=== PATIENT | male | born 1985 | race Caucasian/White ===

== ENCOUNTER 2025-07-14 13:44 | Emergency (ER) | payer OTHER, SELFPAY ==
[2025-07-14 13:45] VITALS: BMI 40.0
[2025-07-14 13:47] VITALS: BP 162/105
[2025-07-14 14:51] VITALS: BP 142/74
[2025-07-14 15:11] LABS: Hematocrit 44.3 % (39.0-52.0); Hemoglobin 15.3 g/dL (13.0-18.0); Mean Corp Hgb Conc. 34.5 g/dL (33.0-37.0); Mean Corpuscular Volume 81.6 fL (80.0-94.0); Nucleated Red Blood Cells % 0 % (-); Platelet Count 264 10^3/uL (130-400); Red Cell Dist. Width 13.8 % (11.5-14.5)
[2025-07-14 15:33] LABS: ALT (SGPT) 52 U/L (0-50); AST (SGOT) 39 U/L (17-59); Albumin 4.8 g/dl (3.5-5.0); Alkaline Phosphatase 83 U/L (38-126); Blood Urea Nitrogen 11 mg/dl (9-20); Calcium 9.9 mg/dl (8.4-10.2); Carbon Dioxide 18 mmol/L (22-30); Chloride 101 mmol/L (98-107); Estimated Creatinine Clearance > 125 ml/min; Glucose 272 mg/dl (70-99); Lipase 94 U/L (23-300); Potassium 4.3 mmol/L (3.5-5.1); Sodium 135 mmol/L (135-145); Total Protein 8.0 g/dl (6.3-8.2); eGFR > 60.00
[2025-07-14 16:04] VITALS: BP 159/76
--- NOTE | 2025-07-14 16:06 | EDRN ---
Dr. Jiang in room w/ pt.
--- NOTE | 2025-07-14 16:09 | ED.GENMED ---
History of Present Illness
General
Chief Complaint: Abdominal Pain
Source: patient
Exam Limitations: none
Time Seen by Provider: 07/14/25 14:33
Nursing documentation reviewed up to this point in time: agreed with
History of Present Illness
History of Present Illness:
39-year-old male with no reported chronic medical issues presents to the emergency department for evaluation of abdominal pain. Patient reports onset of symptoms rather suddenly this morning while at rest and they have been constant although
intensity waxing waning since onset. He reports pain in the right flank that radiates towards the right upper quadrant of the abdomen. Associated with nausea and multiple episodes of nonbloody vomiting. Denies diarrhea or constipation. Denies
any dysuria, hematuria, change in urinary frequency. Denies any fever or chills. He denies having had similar symptoms in the past. Denies any prior abdominal surgeries.
Review of Systems
Review of Systems
All Other Systems: ROS reviewed and negative except as documented in HPI and ROS
Constitutional: Denies fever
Respiratory: Denies trouble breathing
Cardiac: Denies chest pain
ABD/GI: Reports abdominal pain, nausea and vomiting; Denies diarrhea or constipated
: Reports flank pain; Denies dysuria or frequency
Musculoskeletal: Denies neck pain
Neurological: Denies dizzy or headache
Phy Exam
Physical Exam
Physical Exam:
General: Awake, alert, oriented x3; no acute distress
Head: Normocephalic, atraumatic
Eyes: Conjunctiva normal, sclera anicteric
Throat: Airway intact, handling secretions
Neck: Trachea midline, supple without meningismus
Lungs: Clear to auscultation bilaterally, no wheezing, rales, rhonchi
Heart: Regular rate and rhythm, no murmurs, gallops, or rubs
Abd: Obese but soft, non distended, mildly tender in the right upper quadrant
Back: No CVA tenderness
Neuro: Grossly intact
Skin: no rash in area of concern
Extremities: Warm and well-perfused
Scores
Heart Failure Risk
Heart Failure Risk Score: Not Applicable
Heart Score for Chest Pain Patients
STEMI patient?: Not applicable
Withdrawal Assessment of Alcohol
Withdrawal Assessment Completed?: Not applicable
Course
Orders/Labs/Results
Orders:
Orders
07/14/25 14:44
US Abdomen Complete/Upper Urgent
Comment:
Reason For Exam: RUQ/flank pain, N/V
07/14/25 14:48
Complete Blood Count/With Diff Urgent
Comprehensive Metabolic Panel Urgent
Lipase Urgent
07/14/25 14:49
Urinalysis Reflex To Culture Urgent
Date Specimen was Collected: 07/14/25
Time Specimen was Collected: 14:48
Urine Microscopic Reflex Cult Urgent
07/14/25 16:13
0.9% Sodium Chloride 1000 ml [Nss] 1,000 ml IV BOLUS
07/14/25 17:36
Hemoglobin A1c [Glycohemoglobin (HgbA1c)] Urgent
Abnormal Lab Results
07/14/25 07/14/25
14:48 14:49
WBC 15.1 H 10^3/uL
(4.8-10.8)
Abs Immat Gran (auto) 0.3 H 10^3/uL
(0-0.05)
Absolute Neuts (auto) 12.0 H 10^3/uL
(1.4-6.5)
Absolute Monos (auto) 1.0 H 10^3/uL
(0.1-0.6)
Immature Gran % 1.7 H %
(0-0.5)
Neutrophils % 79.3 H %
(42.2-75.2)
Lymphocytes % 11.5 L %
(20.5-51.1)
Carbon Dioxide 18 L mmol/L
(22-30)
Glucose 272 H mg/dl
(70-99)
ALT 52 H U/L
(0-50)
Urine Ketones 3+ A
(Negative)
Ur Occult Blood Reflex 2+ A
(Negative)
Urine RBC 11-15 A /HPF
(0-2)
Urine Bacteria (Reflex) Few A
(Negative)
Urine Glucose 4+ A
(Negative)
Urine Albumin (Reflex) 2+ A
(Neg - Trace)
07/14/25 14:48
07/14/25 14:48
Vital Signs
Initial and Last Documented VS:
Initial Vital Signs
Temp Pulse Resp BP Pulse Ox
37.0 C 68 18 162/105 98
07/14/25 13:47 07/14/25 13:47 07/14/25 13:47 07/14/25 13:47 07/14/25 13:47
Last Documented Vital Signs
Temp Pulse Resp BP Pulse Ox
37.0 C 98 16 170/94 99
07/14/25 13:47 07/14/25 17:16 07/14/25 17:16 07/14/25 17:16 07/14/25 17:16
MDM/Problems Addressed
Differential Diagnosis Includes:
Cholelithiasis, cholecystitis, choledocholithiasis, pancreatitis, nephrolithiasis, UTI, enteritis, PUD, back strain
MDM/Problems Addressed:
39-year-old male presents for evaluation of right flank/abdominal pain waxing and waning intensity since this morning. Associated with nausea and multiple episodes of vomiting. Hypertensive but otherwise normal vitals. Physical exam as noted.
Labs in triage including a CBC which showed a leukocytosis. Chemistry shows mild acidosis likely from GI losses. He is hyperglycemic with a glucose of 272�no known history of diabetes, this will be diagnostic. His LFTs are essentially normal with
only marginal elevation of ALT but normal T. bili, AST, lipase. Check urinalysis. Awaiting results of right upper quadrant ultrasound. May need CT if nondiagnostic. Reassess after the above.
Upper abdominal ultrasound shows fatty liver, no acute abnormality to account for symptoms. Will send for CT abdomen.
Clinical reassessment patient feeling much better and he passed a visible kidney stone through strainer here in the emergency room. Symptoms completely resolved he is now comfortable. Hold off on CT at this point with clearly passed kidney stone.
I long discussion with the patient about his lab results�explained that he is hyperglycemic but his blood pressure was high. Glucose at the level of diabetes with random greater than 200. He says that he does not have a primary doctor. I spoke to
him at length about lifestyle adjustments including diet adjustments, light exercise and weight loss. For now we will start patient on metformin. Explained that he will need to see a primary doctor and I contacted our PCP referral line to reach
out to him to arrange for this. At this point stable for discharge. All questions answered.
Chronic conditions affecting care:
Obesity
Acute Exacerbation and/or Progression of Chronic Illness:
Acutely hypertensive likely pain related�no indication for emergent antihypertensives at this point but will need long-term follow-up
Acute Exacerbation and/or Progression of Chronic Illness: HTN
*Radiology
Radiology exam reviewed: radiology read reviewed
*Pulse Oximetry
SaO2: 97
Oxygen Mode of Delivery: Room air
Patient hypoxic: no (97%)
*Critical Care Note
Total Time (30-74mins, 75-104mins- exclusive of procedures): Not Applicable
Data Reviewed
Source: patient and family
Further Testing Considered But Not Given:
Considered CT scan
ED Attending Note
-
Portions of this chart may have been created with voice recognition software.� Occasional wrong word or��sound alike� substitutions may have occurred due to the inherent limitations of voice recognition software.
Discharge Plan
Departure
Patient Disposition: Home (Routine Discharge)
Date of Disposition: 07/14/25
Time of Disposition: 17:35
Patient with high blood pressure during this ER visit?: Yes
Discharge Problem:
Nephrolithiasis, Hyperglycemia, Hypertension
Instructions: Diabetes and diet, Kidney stones in adults - ED (DC), Diabetes and exercise
Prescriptions:
New
metformin 500 mg tablet
500 mg PO BID Qty: 60 0RF
Referrals:
NONE,* [Family Provider, Internal Medicine]
Activity Restrictions/Additional Instructions:
Thank you for visiting the Emergency Department at [facility].
1. Please schedule a follow up appointment as directed. Call first thing tomorrow morning to make an appointment.
2. If indicated, please take your medications as instructed and indicated on discharge paperwork.
3. If any of your symptoms do not improve, or persist, or become more severe within 6-12 hours, please return to the emergency department for further care.
4. Please return to the emergency department if you develop a headache, neck pain/stiffness, fever greater than 100.4F, chest pain, shortness of breath, persistent nausea, vomiting, slurred speech, difficulty walking, numbness/tingling, weakness,
signs of infection or any other symptoms that are worrisome to you.
Please call [phone] if you have any questions.
Interventions
Interventions:
*Risk Screen - Suicide Last Done: 07/14/25 13:47
*General Assessment Last Done: 07/14/25 13:47
*Neglect/Abuse Screening Last Done: 07/14/25 14:38
[facility] Risk Assessment Tool Last Done: 07/14/25 13:45
BV-Kslyzx-Kuxwgxxwke Assessment Last Done: 07/14/25 14:38
Discharge Date and Time
Print Language: COMORAN
[2025-07-14 16:13] LABS: Urine Character Clear (Clear)
--- NOTE | 2025-07-14 16:13 | EDRN ---
Dr. Jiang in room w/ pt w/ US results. Pt will need CT.
[2025-07-14 16:29] LABS: Urine Squamous Cell 0-2 /LPF (Few)
[2025-07-14 16:30] LABS: Urine White Cell 0-2 /HPF (0-5)
[2025-07-14 17:16] VITALS: BP 170/94
--- NOTE | 2025-07-14 17:29 | EDRN ---
Pt strained a stone w/ strainer and placed in spec cup w/ Dr. Deidre king.
[2025-07-15 09:29] LABS: Glycohemoglobin (HgbA1c) 9.0 % (4.0-5.9)
== END 2025-07-14 17:55 | disposition home or self-care (01) ==
LOC: EMR 13:44
PROVIDERS: EMERGENCY PHYSICIAN Emergency Medicine
DX: N20.0 Calculus of kidney (principal); E11.65 Type 2 diabetes mellitus with hyperglycemia; I10 Essential (primary) hypertension; E87.20 Acidosis, unspecified; E66.9 Obesity, unspecified
CPT/HCPCS: 99284; 76700; 80053; 81003; 81015; 83036; 83690; 85025